=== PATIENT | female | born 1995 | race Asian ===

== ENCOUNTER 2019-02-06 18:12 | Emergency (ER) | payer SELFPAY ==
[~2019-02-06] VITALS: Ht 157.5 cm; Wt 60.5 kg
[~2019-02-06 18:12] MED LIST: ACET500C5 PO; IBUP-1542 PO
[2019-02-06 18:16] VITALS: BP 135/76; PULSE 84; RESP 18; Ht 157.5 cm; Wt 60.5 kg
--- NOTE | 2019-02-06 19:36 | ERD ---
ER Documentation Chief Complaint Chief Complaint sunburn x 2 days, difficulty walking HPI History and physical exam and plan of care discussion performed via perinatology physician services This is a 23-year-old female patient presents emergency room with complaint of sunburn occurring 2 days ago. Patient was seen yesterday at urgent care and given prescription for ibuprofen and told to apply aloe vera however patient thinks that she may need an antibiotic and that is why she presents today. Denies any fever, sweating, nausea or vomiting. No chronic medical problems. ROS All systems reviewed and are negative except as per history of present illness. Medications Home Meds Active Scripts Acetaminophen* (Tylophen*) 500 Mg Capsule, 2 CAP PO Q8H PRN for PAIN AND OR ELEVATED TEMP, #20 CAP Prov:MARLENA MARTIN NP 02/06/19 Ibuprofen* (Motrin*) 600 Mg Tab, 600 MG PO Q6, #30 TAB Prov:MARLENA MARTIN HAND TOOL LAPPER 02/06/19 Allergies Allergies: Coded Allergies: No Known Allergy (Unverified , 02/06/19) PMhx/Soc Medical and Surgical Hx: pt denies Medical Hx, pt denies Surgical Hx Hx Alcohol Use: No Hx Substance Use: No Hx Tobacco Use: No Smoking Status: Never smoker FmHx Family History: No diabetes, No coronary disease, No other Physical Exam Vitals Vital Signs Date Temp Pulse Resp B/P (MAP) Pulse Ox O2 O2 Flow FiO2 Time Delivery Rate 02/06/19 97.2 84 18 135/76 100 18:16 (95) Physical Exam Const: No acute distress Head: Atraumatic Eyes: Normal Conjunctiva ENT: Normal External Ears, Nose and Mouth. Neck: Full range of motion. No meningismus. No lymphadenopathy Resp: Clear to auscultation bilaterally Cardio: Regular rate and rhythm, no murmurs Abd: Soft, non tender, non distended. Normal bowel sounds Skin: No petechiae or rashes, no swelling, no blisters, no peeling, no bruising, no hematoma. +Erythema to frontal bilateral legs abdomen, upper extremity. Back: No midline or flank tenderness Ext: No cyanosis, or edema Neur: Awake and alert, clear speech, steady gait Psych: Normal Mood and Affect Procedures/MDM PROCEDURES/MDM EKG: MDM: This is a 23-year-old female who presents emergency room with complaint of sunburn x2 days. Patient is without other complaints such as fever, nausea, vomiting, chills. Patient is alert, well-appearing, cooperative at time of evaluation. Patient sunburn is first-degree, frontal/anterior surface of upper and lower extremities and abdomen. No blistering, no open skin, no peeling, no signs of infection, no weeping. Patient has been instructed on use of Eucerin cream, increasing hydration, use of NSAIDs, and avoiding direct sun exposure until burn has healed and after that point to always use sunscreen. Patient is given strict instructions on signs and symptoms of worsening of condition, infection, when to return to the emergency room for emergent medical treatment. A serious, rapidly progressive infectious process is unlikely based upon the patients presentation and appearance of skin injury. DISPOSITION and PLAN: RX: Ibuprofen, acetaminophen The patient has been discharge home to follow-up with community physician. Departure Diagnosis: Primary Impression: Sunburn Condition: Stable Patient Instructions: Sunburn Referrals: DOCTOR,NOT ON STAFF (PCP) COMM[facility]ITY [facility] YOU HAVE RECEIVED A MEDICAL SCREENING EXAM AND THE RESULTS INDICATE THAT YOU DO NOT HAVE A CONDITION THAT REQUIRES URGENT TREATMENT IN THE EMERGENCY DEPARTMENT. FURTHER EVALUATION AND TREATMENT OF YOUR CONDITION CAN WAIT UNTIL YOU ARE SEEN IN YOUR DOCTORS OFFICE WITHIN THE NEXT 1-2 DAYS. IT IS YOUR RESPONSIBILITY TO MAKE AN APPOINTMENT FOR FOLOW-UP CARE. IF YOU HAVE A PRIMARY DOCTOR --you should call your primary doctor and schedule an appointment IF YOU DO NOT HAVE A PRIMARY DOCTOR YOU CAN CALL OUR PHYSICIAN REFERRAL HOTLINE AT IF YOU CAN NOT AFFORD TO SEE A PHYSICIAN YOU CAN CHOSE FROM THE FOLLOWING [facility] [address] [facility]. [facility] [address] [facility] [address] [facility] [facility] [address] [facility]. [facility] [address] [facility]. [facility]. [address] Additional Instructions: Thank you very much for allowing us to participate in your care. Your health and safety is our top priority at [facility]. Call your primary care doctor TOMORROW for an appointment during the next 2-4 days and bring all the information and medications prescribed. If the symptoms get worse and your provider is unavailable, return to the Emergency Department immediately. USE IBUPROFEN AND ACETAMINOPHEN NEEDED FOR PAIN USE EUCERIN CREAM DAILY AVOID DIRECT SUN UNTIL SUNBURN HAS RESOLVED USE SUNSCREEN WHEN OUT IN THE SUN RETURN TO THE EMERGENCY ROOM NEEDED FOR BLISTERING, FEVER, CHANGING OR WORSENING OF YOUR CONDITION MARLENA MARTIN NP Feb 06, 2019 19:36
== END 2019-02-06 19:40 | disposition home or self-care (01) ==
LOC: FTE 18:12
DX: L55.9 Sunburn, unspecified (principal)
CPT/HCPCS: 99282